=== PATIENT | female | born 1980 | race Caucasian/White ===

== ENCOUNTER 2020-10-20 18:08 | Emergency (ER) | payer OTHER ==
[2020-10-20 19:02] LABS: BASOPHIL 0.7 % (0-2); EOSINOPHIL 2.4 % (0-5); HCT 41.8 % (37.0-47.0); HGB 14.2 g/dl (12.5-16.0); LYMPHOCYTE 32.7 % (15-48); MCH 31.3 pg (25.0-31.0); MCV 92.3 fL (78.0-100.0); MONOCYTE 11.2 % (0-12); MPV 9.8 fL (6.0-9.5); NEUTROPHIL 52.7 % (41-80); NRBC 0; PLT 261 K/uL (150-400); RBC 4.53 M/uL (4.20-5.40); RDW 12.2 % (11.5-14.0); WBC 7.4 K/uL (4.0-10.5)
[2020-10-20 19:18] LABS: CREATININE 0.75 mg/dL (0.51-0.95); POTASSIUM 3.6 mmol/L (3.5-5.1)
[2020-10-20 19:41] LABS: CKMB <0.5 ng/mL (0.0-3.6)
[2020-10-20] MEDS ORDERED: PROTONIX 40MG T40 MG PO (20:36)
[2020-10-20] MEDS ORDERED: ATARAX25 MG PO (20:36)
== END 2020-10-20 20:58 | disposition home or self-care (01) ==
LOC: FER 18:08
PROVIDERS: Emergency Medicine
DX: R07.89 Other chest pain (principal); R11.0 Nausea
CPT/HCPCS: 36415; 71046; 80048; 82553; 84484; 85025; C9113; J1885